=== PATIENT | male | born 1940 | race Caucasian/White ===

== ENCOUNTER 2016-11-30 11:00 | Emergency (ER) | payer MEDICARE, MEDICAID ==
[~2016-11-30 11:00] MED LIST: ARICEPT10 MG PO; ASPIRIN81 MG PO; CYMBALTA30 MG PO; DUONEB 3.0-0.5 M3 ML INH; FLOMAX0.4 MG PO; INCRUSE ELLI62.5 MCG INH; KLOR-CON M2020 MEQ PO; LANTUS100 UNIT/1 SUBCUT; LASIX20 MG PO; LASIX40 MG PO; LEVAQUIN500 MG PO; LIPITOR20 MG PO; NAMENDA10 MG PO; NORVASC5 MG PO; NOVOLOG100 UNIT/2 SUBCUT; NUEDEXTA 20-101 EACH PO; REQUIP1 MG PO; RISPERDAL1 MG PO; SINEQUAN10 MG PO; SPIRIVA18 MCG INH; THERA M PLUS T1 EACH PO; TOPROL XL25 MG PO; VIBRAMYCIN100 MG PO; ZOLOFT50 MG PO
== END 2016-11-30 13:40 | disposition short-term general hospital (02) ==
LOC: ER 11:00
DX: E11.649 Type 2 diabetes mellitus with hypoglycemia without coma (principal); G30.9 Alzheimer's disease, unspecified; F02.80 Dementia in other diseases classified elsewhere, unspecified severity, without behavioral disturbance, psychotic disturbance, mood disturbance, and anxiety; Z87.01 Personal history of pneumonia (recurrent); Z88.1 Allergy status to other antibiotic agents